=== PATIENT | male | born 1980 | race Two or more races ===

== ENCOUNTER → 2016-06-28 | Outpatient (REF) | payer BC | LOC: M SFHCPLAZ 14:03 | PROVIDERS: ATTEND Internal Medicine Infectious Disease | DX: L03.119 Cellulitis of unspecified part of limb (principal) ==

== ENCOUNTER 2016-10-11 08:02 | Outpatient (RCR) | payer BC | END 2016-10-13 | disposition home or self-care (01) | LOC: M PT 08:02 | PROVIDERS: ATTEND Surgery | DX: Z51.89 Encounter for other specified aftercare (principal); I87.2 Venous insufficiency (chronic) (peripheral); I89.0 Lymphedema, not elsewhere classified ==

== ENCOUNTER → 2016-11-13 | Outpatient (RCR) | payer BC | LOC: M PT 12:00 | PROVIDERS: ATTEND Surgery | DX: Z51.89 Encounter for other specified aftercare (principal); I89.0 Lymphedema, not elsewhere classified ==

== ENCOUNTER 2016-12-08 12:00 | Outpatient (RCR) | payer BC | END 2016-12-14 | disposition home or self-care (01) | LOC: M PT 12:00 | PROVIDERS: ATTEND Surgery | DX: R59.0 Localized enlarged lymph nodes (principal) ==

== ENCOUNTER → 2017-05-28 | Outpatient (CLI) | payer BC | LOC: M PT 11:52 | DX: Z51.89 Encounter for other specified aftercare (principal); R59.0 Localized enlarged lymph nodes | CPT/HCPCS: 97162 ==